=== PATIENT | female | born 1980 | race Caucasian/White ===

== ENCOUNTER 2022-06-06 08:27 | Emergency (ER) | payer MEDICAID, SELFPAY ==
[2022-06-06 08:31] VITALS: BP 122/78; PULSE 73; RESP 14; TEMP 36.1; O2SAT 94; BMI 32.8
--- NOTE | 2022-06-06 09:34 | ED.GENADULT ---
HPI - General Adult General Time Seen by Provider: 09:34 Date Seen: 06/06/22 Chief complaint: Nausea/Vomiting Stated complaint: Cough,vomiting Time Seen by Provider: 06/06/22 09:11 Source: patient, family and RN notes reviewed Mode of arrival: ambulatory Limitations: no limitations History of Present Illness HPI narrative: Patient is a 41-year-old female that was seen after she felt faint. She was here with her significant other whom was having significant nausea vomiting and pain, was actively retching. She was in the room as she brought him in. Started to feel faint. She herself reports she has been sick for couple days with body aches, coughing, nausea without vomiting or diarrhea. Outside of the body aches she has no chest pain no abdominal pain. She was put on the tracker as she was feeling quite ill herself at the time, after waiting to see me, she is feeling better. She feels like the incident with her significant other being so ill does cause her to feel presyncopal. At this time she would like to be checked for COVID but is declining in me doing any blood work, denies needing any IV fluids or Zofran. Will not even take a script for oral Zofran to control nausea at home. She wants no further workup other than having the COVID test. Her son recently came home from [facility]. The all did COVID test at home recently which were negative. She has not had any intercourse since her last menstrual period. Related Data Home Medications Medication Instructions Recorded Confirmed No Known Home Medications 06/06/22 06/06/22 Allergies Allergy/AdvReac Type Severity Reaction Status Date / Time No Known Drug Allergies Allergy Verified 06/06/22 08:35 Review of Systems Status of ROS: Reports: 10 or more systems reviewed and unremarkable except as noted in History and below Exam Narrative: Exam Narrative: When she was in the room before she was a patient here, she started to get faint, leaned over onto the [place] stand. Nursing staff help get her via wheelchair into her own [place] and later down. As I am seen her when she is in room 1 she is alert conversive feeling back to baseline. Const: Vital Signs, click to edit/add: Vital Signs - 24 hr 06/06/22 08:31 Temperature 96.9 F L Pulse Rate [Left P ulse Oximeter] 73 Respiratory Rate 14 Blood Pressure [Le ft Upper Arm] 122/78 Pulse Oximetry 94 Oxygen Delivery Me thod Room Air Documenting provider has reviewed patient's vital signs: yes Common normals: no apparent distress, oriented x3, no limitations, healthy appearing and alert General appearance: cooperative, comfortable and well ket HENMT: Common normals: normocephalic, head/scalp atraumatic, hearing grossly normal bilaterally, external ears normal, external nose normal, nasal mucous membranes and turbinates normal, moist oral mucous membranes, oropharynx normal and dentition normal Head and scalp: normocephalic and atraumatic Nose: external nose normal and nasal mucous membranes and turbinates normal External ear: external ears normal Eye: Common normals: PERRL, EOMs intact bilaterally, conjunctivae normal and no scleral icterus Conjunctiva: conjunctiva(e) normal Pupil: PERRL Neck & C-Spine: Common normals: full ROM, no lymphadenopathy, supple, no meningeal signs, no JVD and thyroid normal Thyroid: thyroid normal Resp: Common normals: normal respiratory effort, no retractions, no use of accessory muscles and clear to auscultation bilaterally Auscultation: clear to auscultation bilaterally Cardio: Common normals: no JVD, regular rate, regular rhythm, S1 normal heart sound, S2 normal heart sound, no gallops, no clicks and no murmurs Rate: regular rate Rhythm: regular rhythm Heart sounds: S1 normal and S2 normal GI: Common normals: Normal to inspection, nondistended, normoactive bowel sounds present, soft to palpation, non-tender, no hepatosplenomegaly, no masses and no bruits Palpation: soft and no hepatosplenomegaly Neuro: Common normals: oriented x3 Sensorium/orientation: alert Meningeal signs: no meningeal signs Psych: Appearance: well kempt Course Course Hospital Course: Will proceed with doing are COVID PCR. We will discharge patient but she will likely be here awaiting treatment with her significant other. She certainly can let me know if she changes her mind about having interventions, further testing in or even something as simple as me sending a script for Zofran in for her. Vital Signs Vital signs: Initial Vital Signs Temperature 96.9 F L 06/06/22 08:31 Temperature Source Temporal Artery Scan 06/06/22 08:31 Pulse Rate 73 06/06/22 08:31 Respiratory Rate 14 06/06/22 08:31 Blood Pressure 122/78 06/06/22 08:31 Blood Pressure Mean 92 06/06/22 08:31 Blood Pressure Position Sitting 06/06/22 08:31 Pulse Oximetry 94 06/06/22 08:31 Oxygen Delivery Method 06/06/22 08:31 Vital Signs Temperature 96.9 F L 06/06/22 08:31 Pulse Rate 73 06/06/22 08:31 Respiratory Rate 14 06/06/22 08:31 Blood Pressure 122/78 06/06/22 08:31 Pulse Oximetry 94 06/06/22 08:31 Oxygen Delivery Method 06/06/22 08:31 Temperature 96.9 F L 06/06/22 08:31 Pulse Rate 73 06/06/22 08:31 Respiratory Rate 14 06/06/22 08:31 Blood Pressure 122/78 06/06/22 08:31 Pulse Oximetry 94 06/06/22 08:31 Oxygen Delivery Method 06/06/22 08:31 Critical Care Time Critical Care Time Critical Care Time: No Discharge Plan Discharge Clinical Impression: Cough, Nausea Condition: Stable Instructions: Acute Nausea and Vomiting (ED), Acute Cough (ED), COVID-19 (Coronavirus Disease 2019) (ED) Additional Instructions: This is very likely a viral illness. We will notify you of your COVID results once they are back. If your COVID test does come back positive, you should quarantine per CDC guidelines. If you are worsening with her symptoms, develops new or concerning symptoms, are not improving within a week of symptoms, do recommend re-evaluation. Activity Level: Activity as Tolerated Prescriptions: No Action No Known Home Medications Follow Up/Referrals: Eli Gee MD [Primary Care Provider] - Stand Alone Forms: [employer] Info Instructions
[2022-06-06 10:10] VITALS: BP 119/87; PULSE 64; RESP 14; O2SAT 98
[2022-06-06 11:10] LABS: SARS PCR* POSITIVE SARS-CoV-2 (Negative)
== END 2022-06-06 10:15 | disposition home or self-care (01) ==
PROVIDERS: Emergency Provider Family Medicine; PCP Family Medicine
DX: R11.2 Nausea with vomiting, unspecified (principal); R05.9 Cough, unspecified
CPT/HCPCS: 87635; 99283

== ENCOUNTER 2024-06-01 14:08 | Outpatient (CLI) | payer OTHER, SELFPAY | END 2024-06-01 14:09 | disposition home or self-care (01) | PROVIDERS: PCP Family Medicine; Visit Provider Family Medicine | DX: R53.83 Other fatigue (principal); E55.9 Vitamin D deficiency, unspecified; E66.9 Obesity, unspecified; G89.29 Other chronic pain; L65.9 Nonscarring hair loss, unspecified; R73.01 Impaired fasting glucose; R10.9 Unspecified abdominal pain; M25.50 Pain in unspecified joint | CPT/HCPCS: 80053; 80061; 82306; 84443; 86618 ==

== ENCOUNTER 2024-06-16 08:54 | Outpatient (CLI) | payer OTHER, SELFPAY ==
--- OUTSIDE RECORDS SUMMARY | 2024-06-16 08:58 | XMS_ITS | Clinical Summary ---
Author Organization [facility] Address [place], [place] [address] Care Team Providers Care Nursing Department Chairperson Name Role Phone Nonstaff, Doctor Primary Care Provider Unavailab le Allergies No known active allergies Medications Medication Sig Dispensed Refills Start Date End Date Status lactobac cmb #[id number] (PROBIOTIC AND ACIDOPHILUS) 300-250 million cell-mg cap Take by mouth. A ctive cholecalciferol (VITAMIN D) 1,000 unit capsule Take 1,000 Units by mouth once daily. Active multivitamin (MVI) tablet Take 1 tablet by mouth once daily. Active b complex vitamins (VITAMIN B COMPLEX) capsule Take 1 capsule by mouth once daily. 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 Resolved Problems Problem Noted Date Diagnosed Date Resolved Date Supervision of normal first 05/02/2010 05/11/2010 Post - dates 05/02/2010 05/18/2010 Social History Tobacco Use Types Packs/Day Years Used Date Smoking Tobacco: Never Smokeless Tobacco: Never Alcohol Use Standard Drinks/Week Comments Yes 0 (1 standard drink = 0.6 oz pur e alcohol) occasional Sex and Gender Information Value Date Recorded Sex Assigned at Not on file Gender Identity Not on file Sexual Orientation Not on file Obstetrics History Para Term AB IAB SAB Ectopic Multiple Livin g Live Births 1 1 1 1 Date Outcome GA Total Labor Labor/2nd/3rd Weight Sex Type Anes PTL Aileen A1 A5 Name Clin 010 Term 42w0 d 3.35 kg (7 lb 6 oz) M Vag Comments:meat specialist in [facility] Last Filed Vital Signs Vital Sign Reading Time Taken Comments Blood Pressure 125/64 11/19/2021 11:35 AM BILINGUAL EXECUTIVE ASSISTANT Pulse 57 11/19/2021 11:35 AM BILINGUAL EXECUTIVE ASSISTANT Temperature 36.5 ??C (97.7 ??F) 11/19/2021 11:[address] Respiratory Rate 19 11/19/2021 11:35 AM BILINGUAL EXECUTIVE ASSISTANT Oxygen Saturation 100% 11/19/2021 11:35 AM BILINGUAL EXECUTIVE ASSISTANT Inhaled Oxygen Concentration - - Weight 80.3 kg (177 lb) 11/19/2021 9:30 AM BILINGUAL EXECUTIVE ASSISTANT Height 160 cm (5' 3) 11/19/2021 9:30 AM BILINGUAL EXECUTIVE ASSISTANT Body Mass Index 31.35 11/19/2021 9:30 AM BILINGUAL EXECUTIVE ASSISTANT Plan of Treatment Health Maintenance Due Date Last Done Comments Tdap 1990 Depression screening for age 12+ 1991 HIV for age 15-65 1994 BMI (ht and wt on same day) for age 18+ 1997 Hepatitis C screening for age 18-79 1997 Tetanus booster 1999 Pap test for age 21-65 04/28/2022 9, 04/28/2019, 09/12/2014, Additional history exists COVID-19 vaccine series (2022- season) 2023 01/06/2021 Influenza for age 9-49 06/27/2024 Pneumococcal series for age 6-64 Aged Out No longer eligible based on patient's age to complete this topic Procedures Procedure Name Priority Date/Time Associated Diagnosis Comments SENIOR IOS DEVELOPER THIN PREP PAP SCREEN IMAGED Routine 04/28/2019 8:15 AM CDT from Last 3 Months or Most Recently Relevant to Health Maintenance Results * SENIOR IOS DEVELOPER THIN PREP PAP SCREEN IMAGED (04/28/2019 8:15 AM CDT) Case Report Gynecologic Cytology Report ? Case: [id number] ? Authorizing Provider: ??Eli Gee MD ??Collected: ? 04/28/2019 0815 ? Ordering Location: ? [facility] ?Received: ?04/28/2019 1908 ? First Screen: ?Christen Flor ? Specimen: ?SENIOR IOS DEVELOPER ThinPrep Vial Screening, Cervical/Vaginal ? 05/10/2019 11:39 AM [facility] INTERPRETATION/ RESULT NEGATIVE FOR INTRAEPITHELIAL LESION OR MALIGNANCY (NIL) (none) 05/10/2019 11:39 AM [facility] IMEN ADEQUACY Satisfactory for evaluation Endocervical component present 05/10/2019 11:39 AM [facility] HPV REQUEST HPV and PAP 05/10/2019 11:39 AM [facility] Date of LMP 04/21/2019 05/10/2019 11:39 AM [facility] Automated Review Successful 05/10/2019 11:39 AM [facility] Comment:Specimen processed s uccessfully by automated director nicu device, ThinPrep Imaging System, [employer] ANCILLARY TESTING SENIOR IOS DEVELOPER HPV Ordered, Please see separate report 05/10/2019 11:39 AM [facility] Note The pap test is a screening technique, not a diagnostic procedure. ??It is used primarily to screen for squamous cancers and precursor lesions. ??Published studies have shown that it is subject to both false negative and false positive results. ??The pap test should not be used as the sole means to diagnose or exclude pre-malignant and malignant lesions. Cytology is screened and interpreted at [facility] - [address], [place] [address] and [facility] - [address] [place] [address]; [place] [address] and [facility] - [address]; [place] [address] and [facility] [address]; [place] [address] 05/10/2019 11:39 AM CDT [facility] Other (Cervical/Vagina l) 04/28/2019 8:15 AM CDT 04/28/2019 7:08 PM CDT Eli Gee MD PATHOLOGY/CYTOLO GY [facility] [address] [place] [address], from Last 3 Months or Most Recently Relevant to Health Maintenance Advance Directives * Full Code (Latest Code Status on File) Date Activated Date Inactivated Comments 11/19/2021 9:25 AM 11/19/2021 1:53 PM Question Answer Comments Code Status Discussion: Unable to Assess Preferences, Provider to review later * Full Code Date Activated Date Inactivated Comments 11/19/2021 9:25 AM 11/19/2021 9:25 AM Question Answer Comments Code Status Discussion: Unable to Assess Preferences, Provider to review later * Full Code Date Activated Date Inactivated Comments 05/21/2016 1:48 PM 05/22/2016 2:13 PM Care Teams Nursing Department Chairperson Relationship Specialty Start Date End Date Nonstaff, Doctor NON STAFF DOCTOR PCP - General 05/15/16
--- NOTE | 2024-06-16 09:15 | CRLHL7_ITS ---
For Patients: As a result of the Century Cures Act, medical imaging exams and procedure reports are released immediately into your electronic medical record. You may view this report before your referring provider. If you have questions, please contact your health care provider. BILATERAL SCREENING MAMMOGRAM WITH COMPUTER-AIDED DETECTION AND TOMOSYNTHESIS TECHNIQUE: CC and MLO views were obtained. These mammographic images have been obtained using full-field digital technique. These mammographic images were interpreted with the benefit of computer-aided detection. Breast tomosynthesis was used in this interpretation. COMPARISON FILM: 01/14/22. FINDINGS: The breasts are almost entirely fatty. IMPRESSION: There is no radiographic evidence for malignancy. ASSESSMENT: BI-RADS Category 1: Negative RECOMMENDATION: Routine screening mammogram in 1 year. A lay language report of this examination will be provided to the patient. DOMINICK RINCON M.D. Diagnostic Radiologist [email or web address] Transcribed: 3:[address]/Dictated by: Dominick Rincon MD @ 06/16/2024 11:41:00 AM (Electronically Signed)
== END 2024-06-16 08:55 | disposition home or self-care (01) ==
LOC: MAMMO 08:55
PROVIDERS: PCP Family Medicine; Visit Provider Family Medicine
DX: Z12.31 Encounter for screening mammogram for malignant neoplasm of breast (principal)
CPT/HCPCS: 77063; 77067

== ENCOUNTER 2024-06-30 13:20 | Outpatient (CLI) | payer OTHER, SELFPAY | END 2024-06-30 13:21 | disposition home or self-care (01) | LOC: NFLDREF 07-14 07:35 | PROVIDERS: PCP Family Medicine; Referring Provider Family Medicine; Visit Provider Family Medicine | DX: Z12.4 Encounter for screening for malignant neoplasm of cervix (principal) | CPT/HCPCS: 87624 ==

== ENCOUNTER 2025-06-28 08:40 | Outpatient (CLI) | payer OTHER, SELFPAY | END 2025-06-28 08:41 | disposition home or self-care (01) | LOC: NFLDREF 06-29 04:54 | PROVIDERS: PCP Family Medicine; Referring Provider Family Medicine; Visit Provider Family Medicine | DX: E78.5 Hyperlipidemia, unspecified (principal); E55.9 Vitamin D deficiency, unspecified; R53.83 Other fatigue; M81.0 Age-related osteoporosis without current pathological fracture; Z11.59 Encounter for screening for other viral diseases | CPT/HCPCS: 80053; 80061; 82306; 86803; 87340 ==

== ENCOUNTER 2025-07-05 06:56 | Outpatient (CLI) | payer OTHER, SELFPAY ==
--- NOTE | 2025-07-05 07:15 | CRLHL7_ITS ---
For Patients: As a result of the Century Cures Act, medical imaging exams and procedure reports are released immediately into your electronic medical record. You may view this report before your referring provider. If you have questions, please contact your health care provider. INDICATION: ABNORMAL FINDINGS OF BLOOD CHEMISTRY COMPARISON: CT 11/16/2020 TECHNIQUE: Real time hicks scale imaging and color Doppler analysis was performed of the right upper quadrant. FINDINGS: Liver measures 12.8 cm. Liver echotexture is mildly increased. There is a normal appearance of the hepatic IVC and proximal abdominal aorta. There is no evidence of ascites. The gallbladder is absent. The common bile duct is of normal size and measures 3.2 mm in diameter at the level of the ned hepatis. The pancreas appears normal. There is no evidence of a stone or hydronephrosis within the right kidney. The right kidney measures 11.1 cm in length. IMPRESSION: Mild hepatic steatosis. Status post cholecystectomy. No biliary obstruction. Dictated by Dominick Small MD @ 07/05/2025 7:39:53 AM (Electronically Signed)
== END 2025-07-05 06:57 | disposition home or self-care (01) ==
LOC: US 06:57
PROVIDERS: PCP Family Medicine; Visit Provider Family Medicine
DX: R79.89 Other specified abnormal findings of blood chemistry (principal); K76.0 Fatty (change of) liver, not elsewhere classified; R10.11 Right upper quadrant pain
CPT/HCPCS: 76705